=== PATIENT | male | born 1990 | race Two or more races ===

== ENCOUNTER 2019-12-23 09:32 | Emergency (ER) | payer SELFPAY ==
--- NOTE | 2019-12-23 09:51 | EDM.PDOC ---
ED HPI GENERAL MEDICAL PROBLEM - General Chief Complaint: Abdominal Pain Stated Complaint: LOWER ABDOMINAL PAIN Time Seen by Provider: 12/23/19 09:41 Source of Information: Reports: Other (Is fluent in [place] only the online driver license agent's service was very beneficial in his care and obtaining history) History Limitations: Reports: Language Barrier - History of Present Illness INITIAL COMMENTS - FREE TEXT/NARRATIVE: 29-year-old male presents the emergency room with right-sided abdominal pain. Pain woke him up around 2 AM this morning and was pretty severe he has associated right-sided abdominal pain seems to originate in the flank and now shoots into the groin. The patient has a history of "renal colic". He is not aware of any significant work-up that is been done in the past however in [place] was told by physicians that his pain was from his kidneys and was renal colic. He has no history of other medical problems he has no history of any surgeries. He is not on any routine medications and he is not aware of any medication allergies. Patient has not had any fevers or chills no nausea or vomiting. Right Lower Abdomen Pain Score (Numeric/FACES): 7 - Related Data Allergies Allergy/AdvReac Type Severity Reaction Status Date / Time No Known Allergies Allergy Verified 12/23/19 10:01 Home Meds: Home Meds Acetaminophen/HYDROcodone [[place] 325-5 MG] 1 - 2 tab PO Q6H PRN #10 tablet 12/22 [Rx] ED ROS GENERAL - Review of Systems Review Of Systems: See Below Constitutional: Reports: No Symptoms Respiratory: Reports: No Symptoms Cardiovascular: Reports: No Symptoms GI/Abdominal: Reports: Abdominal Pain. Denies: Constipation, Diarrhea, Nausea, Vomiting : Reports: Flank Pain. Denies: Discharge, Dysuria, Frequency, Urgency Musculoskeletal: Reports: No Symptoms ED EXAM, GI/ABD - Physical Exam Exam: See Below Exam Limited By: Language Barrier General Appearance: Alert, No Apparent Distress, Other (Via the driver license agent he rates his pain out of a 7/10) Head: Atraumatic, Normocephalic Neck: Normal Inspection, Supple, Non-Tender, Full Range of Motion Respiratory/Chest: No Respiratory Distress, Lungs Clear, Normal Breath Sounds Cardiovascular: Regular Rate, Rhythm, No Edema, No Murmur GI/Abdominal Exam: Normal Bowel Sounds, Soft, Tender (Significant tenderness on the right side minimally aggravated with palpation no rigidity rebound or guarding noted) Back Exam: Normal Inspection. No: CVA Tenderness (L), CVA Tenderness (R) Course - Vital Signs Last Recorded V/S: Last Vital Signs Temp 36.4 C 12/23/19 09:50 Pulse 80 12/23/19 09:50 Resp 16 12/23/19 09:50 BP 140/92 H 12/23/19 09:50 Pulse Ox 99 12/23/19 09:50 - Orders/Labs/Meds Orders: Active Orders 24 hr Category Date Time Status Lactated Ringers [Ringers, Lactated] 1,000 ml Med 12/23/19 10:00 Active IV ASDIRECTED Medication Orders Lactated Ringer's (Ringers, Lactated) 1,000 mls @ 50 mls/hr IV ASDIRECTED DAYSI Last Admin: 12/23/19 10:23 Dose: 50 mls/hr Labs: Laboratory Tests 12/23/19 12/23/19 12/23/19 Range/Units 10:20 10:20 10:20 WBC 13.58 H (4.23-9.07) K/mm3 RBC 5.08 (4.63-6.08) M/mm3 Hgb 14.9 (13.7-17.5) gm/dl Hct 45.5 (40.1-51.0) % MCV 89.6 (79.0-92.2) fl MCH 29.3 (25.7-32.2) pg MCHC 32.7 (32.2-35.5) g/dl RDW Std Deviation 39.1 (35.1-43.9) fL Plt Count 290 (163-337) K/mm3 MPV 10.0 (9.4-12.3) fl Neut % (Auto) 90.3 H (34.0-67.9) % Lymph % (Auto) 5.9 L (21.8-53.1) % Patrick % (Auto) 3.5 L (5.3-12.2) % Eos % (Auto) 0.1 L (0.8-7.0) Baso % (Auto) 0.1 (0.1-1.2) % Neut # (Auto) 12.26 H (1.78-5.38) K/mm3 Lymph # (Auto) 0.80 L (1.32-3.57) K/mm3 Patrick # (Auto) 0.48 (0.30-0.82) K/mm3 Eos # (Auto) 0.01 L (0.04-0.54) K/mm3 Baso # (Auto) 0.01 (0.01-0.08) K/mm3 Manual Slide Review Normal smear Sodium 138 (136-145) mEq/L Potassium 4.1 (3.5-5.1) mEq/L Chloride 102 (98-107) mEq/L Carbon Dioxide 26 (21-32) mEq/L Anion Gap 14.1 (5-15) BUN 15 (7-18) mg/dL Creatinine 1.4 H (0.7-1.3) mg/dL Est Cr Clr Drug Dosing 88.75 mL/min Estimated GFR (MDRD) 60 (>60) mL/min BUN/Creatinine Ratio 10.7 L (14-18) Glucose 130 H (74-106) mg/dL Calcium 8.9 (8.5-10.1) mg/dL Total Bilirubin 0.4 (0.2-1.0) mg/dL AST 27 (15-37) U/L ALT 47 (16-63) U/L Alkaline Phosphatase 75 (46-116) U/L Total Protein 7.9 (6.4-8.2) g/dl Albumin 4.4 (3.4-5.0) g/dl Globulin 3.5 gm/dL Albumin/Globulin Ratio 1.3 (1-2) Urine Color Yellow (Yellow) Urine Appearance Clear (Clear) Urine pH 7.5 (5.0-8.0) Ur Specific [place] 1.025 (1.005-1.030) Urine Protein Negative (Negative) Urine Glucose (UA) Negative (Negative) Urine Ketones Negative (Negative) Urine Occult Blood 2+ H (Negative) Urine Nitrite Negative (Negative) Urine Bilirubin Negative (Negative) Urine Urobilinogen 0.2 (0.2-1.0) Ur Leukocyte Esterase Negative (Negative) Urine RBC 5-10 H (0-5) /hpf Urine WBC 0-5 (0-5) /hpf Ur Squamous Epith Cells 0-5 (0-5) /hpf Urine Bacteria Not seen (FEW) /hpf Urine Mucus Not seen (FEW) /hpf Meds: Medications Generic Name Dose Route Start Last Admin Trade Name Freq PRN Reason Stop Dose Admin Lactated Ringer's 1,000 mls @ 50 mls/hr 12/23/19 10:00 12/23/19 10:23 Ringers, Lactated IV 50 mls/hr ASDIRECTED DAYSI Administration Discontinued Medications Generic Name Dose Route Start Last Admin Trade Name Freq PRN Reason Stop Dose Admin Fentanyl 50 mcg 12/23/19 09:59 12/23/19 10:23 Sublimaze IVPUSH 12/23/19 10:00 50 mcg ONETIME ONE Administration - Re-Assessments/Exams Free Text/Narrative Re-Assessment/Exam: 12/23/19 12:32 Patient was worked up for kidney stone urinalysis showed trace microscopic hematuria. CBC showed a mildly increased white count probably stress reaction. CT KUB showed a 3 mm stone within the bladder. Suspect he passed his stone the patient is symptom-free at this time however shortly before I reevaluated the patient he did have some worsening pain probably residual renal colic. But at this point he is absolutely symptom-free using the assistance of the online driver license agent we were able to discuss the treatment plan. The patient will strain his urine and follow-up in the hospital clinic for recheck later this week. Departure - Departure Time of Disposition: 12:35 Disposition: Home, Self-Care 01 Clinical Impression: Right nephrolithiasis - Discharge Information Prescriptions: Acetaminophen/HYDROcodone [[place] 325-5 MG] 1 - 2 tab PO Q6H PRN #10 tablet PRN Reason: Abdominal Pain Referrals: PCP,None [Primary Care Provider] - Forms: ED Department Discharge Additional Instructions: Return to the emergency room with any questions problems or worsening symptoms. Strain your urine looking for the stone it will be probably the size of a piece of sand. Collect this as instructed. Follow-up in the hospital clinic on Monday or of this week for recheck. [phone] Sepsis Event Note - Focused Exam Vital Signs: Vital Signs Temp Pulse Resp BP Pulse Ox 12/23/19 09:50 36.4 C 80 16 140/92 H 99 Date Exam was Performed: 12/23/19 Time Exam was Performed: 12:38 - My Orders Last 24 Hours: My Active Orders 12/23/19 10:00 Lactated Ringers [Ringers, Lactated] 1,000 ml IV ASDIRECTED - Assessment/Plan Last 24 Hours: My Active Orders 12/23/19 10:00 Lactated Ringers [Ringers, Lactated] 1,000 ml IV ASDIRECTED
[2019-12-23] MEDS ORDERED: fentaNYL 100 MCG/2 ML SDV IVPUSH ONE (09:59)
[2019-12-23] MEDS ORDERED: Lactated Ringers 1,000 ML IV SCH (10:00)
--- NOTE | 2019-12-23 11:14 | CT ---
CT abdomen and pelvis Technique: Multiple axial sections were obtained from above the dome of the diaphragm inferiorly through the pubic symphysis. Intravenous and oral contrast not utilized. Study performed as a ureteral stone protocol. Findings: Mildly dilated right ureter is seen. Calcification is seen which projects into the bladder measuring about 3 mm. This most likely represented a right ureteral stone which has passed into the bladder. Multiple small nonobstructing calculi are seen within the right kidney. Minimal calcifications within the left kidney are seen. No ureteral stone is seen. Visualized lung bases show nothing acute. Noncontrast appearance of the liver and spleen appears within normal limits. Adrenal glands show no nodule. Pancreas is within normal limits. Gallbladder contains no calcified gallstones. Aorta shows no aneurysm. No retroperitoneal adenopathy or mesenteric abnormalities are seen. No pelvic mass or adenopathy is identified. Appendix felt to be visualized and is normal in size size. No free fluid or inflammatory change is seen. Bone window settings were reviewed which appear within normal limits for the patient's age. Impression: 1. 3 mm stone within the bladder most likely representing previous right ureteral stone which has passed. Please correlate that patient's symptoms have improved. 2. Nonobstructing calculi within the kidneys as noted above. 3. No additional abnormality is appreciated. Diagnostic code #3 This report was dictated in MDT
== END 2019-12-23 13:07 | disposition home or self-care (01) ==
LOC: JD.ED 09:32
DX: N20.0 Calculus of kidney (principal)
CPT/HCPCS: 36415; 74176; 80053; 81001; 85025; 96361; 96374; 99284; J3010; J7120